=== PATIENT | male | born 1980 | race Caucasian/White ===

== ENCOUNTER 2018-08-20 12:12 | Emergency (ER) | payer OTHER ==
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
== END 2018-08-20 13:38 | disposition home or self-care (01) ==
LOC: MW.ED 12:12
DX: S20.211A Contusion of right front wall of thorax, initial encounter (principal); H11.31 Conjunctival hemorrhage, right eye; F41.9 Anxiety disorder, unspecified; F17.210 Nicotine dependence, cigarettes, uncomplicated; Z79.899 Other long term (current) drug therapy; Y04.0XXA Assault by unarmed brawl or fight, initial encounter
CPT/HCPCS: 71101-26-RT; 71101-RT; 99283; 99283-25